=== PATIENT | female | born 1980 | race Caucasian/White ===

== ENCOUNTER → 2018-03-15 | Emergency (ER) | payer OTHER ==
[~2018-03-15] VITALS: Ht 157.5 cm; Wt 63.0 kg
[~2018-03-15] MED LIST: ARMO250T4 PO; BUPR150T8 PO; CETI-1 PO; CLON-528 PO; FAMO-1 PO; HYDR1TAB PO; IBUP-1984 PO; ONDA4TAB59 PO; ONDA8TAB9 PO; SULF5DRO EACHEYE; erythromycin ophthalmic ointment 1gm tube EACHEYE ONE
[2018-03-15 12:05] VITALS: BP 117/70
== END | disposition home or self-care (01) ==
LOC: ER 12:03
DX: H10.9 Unspecified conjunctivitis (principal); Z98.890 Other specified postprocedural states; Z88.1 Allergy status to other antibiotic agents; Z88.6 Allergy status to analgesic agent; Z88.8 Allergy status to other drugs, medicaments and biological substances
CPT/HCPCS: 99282

== ENCOUNTER 2018-06-20 13:34 | Emergency (ER) | payer OTHER ==
[~2018-06-20] VITALS: Ht 157.5 cm; Wt 59.1 kg
[~2018-06-20 13:34] MED LIST changes: -erythromycin ophthalmic ointment 1gm tube EACHEYE ONE
[2018-06-20 13:40] VITALS: BP 145/90
[2018-06-20] MEDS ORDERED: BACDS PO (14:10)
[2018-06-20] MEDS ORDERED: sulfamethoxazole/trimethoprim DS (800/160mg) tablet PO ONE (14:10)
[2018-06-20] MEDS ORDERED: gentamicin 0.3% ophthalmic drops 5ML LEFTEYE ONE (14:10)
[2018-06-21] MEDS ORDERED: HYDR-4383 PO (18:07)
[2018-06-21] MEDS ORDERED: DOXY100T2 PO (18:07)
[2018-06-21] MEDS ORDERED: ONDA4TAB6 PO (18:07)
[2018-06-21] MEDS ORDERED: HYDR-3686 PO (18:13)
[2018-06-22] MEDS ORDERED: PRED20TA PO (17:57)
[2018-06-22] MEDS ORDERED: RIFA600V4 PO (18:07)
== END 2018-06-20 14:21 | disposition home or self-care (01) ==
LOC: ER 13:34
DX: L08.9 Local infection of the skin and subcutaneous tissue, unspecified (principal); Z90.89 Acquired absence of other organs; Z98.890 Other specified postprocedural states; Z88.1 Allergy status to other antibiotic agents; Z79.899 Other long term (current) drug therapy
CPT/HCPCS: 99283

== ENCOUNTER 2018-06-21 17:18 | Emergency (ER) | payer OTHER ==
[~2018-06-21] VITALS: Ht 157.5 cm; Wt 61.3 kg
[~2018-06-21 17:18] MED LIST changes: +BACDS PO
[2018-06-21 17:59] VITALS: BP 119/85
[2018-06-21] MEDS ORDERED: ONDA4TAB6 PO (18:07)
[2018-06-21] MEDS ORDERED: DOXY100T2 PO (18:07)
[2018-06-21] MEDS ORDERED: HYDR-4383 PO (18:07)
[2018-06-21] MEDS ORDERED: HYDR-3686 PO (18:13)
[2018-06-22] MEDS ORDERED: PRED20TA PO (17:57)
[2018-06-22] MEDS ORDERED: RIFA600V4 PO (18:07)
== END 2018-06-21 18:20 | disposition home or self-care (01) ==
LOC: ER 17:18
DX: B95.8 Unspecified staphylococcus as the cause of diseases classified elsewhere (principal); Z86.14 Personal history of Methicillin resistant Staphylococcus aureus infection; Z90.89 Acquired absence of other organs; Z98.890 Other specified postprocedural states; Z88.1 Allergy status to other antibiotic agents; Z79.899 Other long term (current) drug therapy
CPT/HCPCS: 99283

== ENCOUNTER 2018-06-30 14:19 | Emergency (ER) | payer OTHER ==
[~2018-06-30] VITALS: Ht 157.5 cm; Wt 58.3 kg
[~2018-06-30 14:19] MED LIST changes: +DOXY100T2 PO; +HYDR-3686 PO; +HYDR-4383 PO; +ONDA4TAB6 PO; +RIFA600V4 PO
[2018-06-30 15:07] VITALS: BP 123/93
[2018-06-30] MEDS ORDERED: GABA-530 PO (15:34)
== END 2018-06-30 15:44 | disposition home or self-care (01) ==
LOC: ER 14:20
DX: L08.9 Local infection of the skin and subcutaneous tissue, unspecified (principal); L53.8 Other specified erythematous conditions; R60.9 Edema, unspecified; Z90.89 Acquired absence of other organs; Z79.899 Other long term (current) drug therapy; Z88.8 Allergy status to other drugs, medicaments and biological substances; Z88.1 Allergy status to other antibiotic agents; Z86.14 Personal history of Methicillin resistant Staphylococcus aureus infection
CPT/HCPCS: 87070; 99283

== ENCOUNTER 2018-07-14 08:07 | Emergency (ER) | payer OTHER ==
[~2018-07-14] VITALS: Ht 157.5 cm; Wt 61.3 kg
[~2018-07-14 08:07] MED LIST changes: +GABA-530 PO; -HYDR-3686 PO
[2018-07-14 08:08] VITALS: BP 114/87
[2018-07-14] MEDS ORDERED: triamcinolone acetonide 40mg/ml inj IM ONE (08:25)
[2018-07-14 09:20] LABS: BASOPHILS % (AUTO) 0.2 % (0-1); EOSINOPHILS % (AUTO) 0 % (0-6); HEMOGLOBIN 13.1 g/dl (12.0-16.0); LYMPHOCYTES # (AUTO) 0.7 X10'3 (1.1-4.8); LYMPHOCYTES % (AUTO) 7.6 % (21-51); MEAN CORPUSCULAR HGB CONC 34.6 % (33.0-36.5); MEAN CORPUSCULAR VOLUME 92.5 FL (78-98); MEAN PLATELET VOLUME 8.4 FL (7.4-10.4); MONOCYTES # (AUTO) 0.1 X10'3 (0-0.9); MONOCYTES % (AUTO) 1.3 % (2-12); NEUTROPHILS # (AUTO) 8.1 X10'3 (1.8-7.7); NEUTROPHILS % (AUTO) 90.9 % (42-75); PLATELET COUNT 270 X10'3 (140-440); RED BLOOD COUNT 4.11 X10'6 (4.20-5.60); RED CELL DISTRIBUTION WIDTH 13.7 % (11.5-14.5); WHITE BLOOD COUNT 8.9 X10'3 (4.5-11.0)
[2018-07-14 09:26] LABS: ALANINE AMINOTRANSFERASE 24 U/L (12-78); ALBUMIN 3.9 G/DL (3.4-5.0); ALBUMIN/GLOBULIN RATIO 1.2 (1.1-1.5); ALKALINE PHOSPHATASE 89 IU/L (46-116); ANION GAP 11 (8-16); ASPARTATE AMINO TRANSFERASE 19 U/L (10-37); BILIRUBIN,TOTAL 0.4 MG/DL (0.1-1.0); BLOOD UREA NITROGEN 11 MG/DL (7-18); BUN/CREATININE RATIO 13.8 (6.6-38.0); CALCIUM 8.9 MG/DL (8.5-10.1); CHLORIDE 103 MMOL/L (99-107); GLUCOSE 107 MG/DL (70-104); POTASSIUM 3.8 MMOL/L (3.5-5.1); SODIUM 140 MMOL/L (135-145); TOTAL CARBON DIOXIDE 25.8 MMOL/L (24-32); TOTAL PROTEIN 7.2 G/DL (6.4-8.2); eGFR 81 ML/MIN
[2018-07-14] MEDS ORDERED: HYDR25CA PO (09:42)
[2018-07-16 08:48] LABS: RPR Non Reactive (Non Reactive)
== END 2018-07-14 09:49 | disposition home or self-care (01) ==
LOC: ER 08:07
DX: R21 Rash and other nonspecific skin eruption (principal); Z88.1 Allergy status to other antibiotic agents; Z88.2 Allergy status to sulfonamides; Z88.8 Allergy status to other drugs, medicaments and biological substances
CPT/HCPCS: 36415; 80053; 85025; 86592; 96372; 99283; J3301

== ENCOUNTER 2018-07-25 08:30 | Outpatient (CLI) | payer OTHER ==
[~2018-07-25 08:30] MED LIST changes: -BACDS PO; +HYDR25CA PO
[2018-07-25 09:48] LABS: BASOPHILS % (AUTO) 0.8 % (0-1); EOSINOPHILS # (AUTO) 0.1 X10'3 (0-0.9); EOSINOPHILS % (AUTO) 1.9 % (0-6); HEMATOCRIT 37.5 % (35.0-45.0); HEMOGLOBIN 12.6 g/dl (12.0-16.0); LYMPHOCYTES # (AUTO) 1.6 X10'3 (1.1-4.8); LYMPHOCYTES % (AUTO) 29.8 % (21-51); MEAN CORPUSCULAR HEMOGLOBIN 31.3 PG (27.0-31.0); MEAN CORPUSCULAR HGB CONC 33.6 % (33.0-36.5); MEAN CORPUSCULAR VOLUME 93.3 FL (78-98); MEAN PLATELET VOLUME 7.8 FL (7.4-10.4); MONOCYTES # (AUTO) 0.5 X10'3 (0-0.9); MONOCYTES % (AUTO) 9.3 % (2-12); NEUTROPHILS % (AUTO) 58.2 % (42-75); PLATELET COUNT 258 X10'3 (140-440); RED BLOOD COUNT 4.02 X10'6 (4.20-5.60); RED CELL DISTRIBUTION WIDTH 14.8 % (11.5-14.5); WHITE BLOOD COUNT 5.2 X10'3 (4.5-11.0)
[2018-07-25 10:06] LABS: ALANINE AMINOTRANSFERASE 29 U/L (12-78); ALBUMIN 3.8 G/DL (3.4-5.0); ALBUMIN/GLOBULIN RATIO 1.3 (1.1-1.5); ALKALINE PHOSPHATASE 76 IU/L (46-116); ANION GAP 9 (8-16); ASPARTATE AMINO TRANSFERASE 21 U/L (10-37); BILIRUBIN,TOTAL 0.2 MG/DL (0.1-1.0); BLOOD UREA NITROGEN 11 MG/DL (7-18); BUN/CREATININE RATIO 14.1 (6.6-38.0); CALCIUM 8.3 MG/DL (8.5-10.1); CHLORIDE 106 MMOL/L (99-107); CHOL/HDL RATIO 2.3 (0.00-4.99); CHOLESTEROL 184 MG/DL (0-200); CREATININE 0.78 MG/DL (0.40-0.90); GLUCOSE 86 MG/DL (70-104); HDL CHOLESTEROL 80 MG/DL (35-60); LDL CHOLESTEROL 94 MG/DL (50-100); POTASSIUM 3.4 MMOL/L (3.5-5.1); SODIUM 142 MMOL/L (135-145); TOTAL CARBON DIOXIDE 26.8 MMOL/L (24-32); TOTAL PROTEIN 6.7 G/DL (6.4-8.2); TRIGLYCERIDES 49 MG/DL (20-135); eGFR 84 ML/MIN
[2018-07-25 10:36] LABS: RHEUM FACTOR QUAL REFLEX TITER NEGATIVE (Neg)
[2018-07-26 11:15] LABS: ANTINUCLEAR ANTIBODIES Negative (Negative)
== END 2018-07-25 23:59 | disposition home or self-care (01) ==
LOC: LAB 08:30
PROVIDERS: ATTEND Physician Assistant
DX: Z00.00 Encounter for general adult medical examination without abnormal findings (principal); M25.50 Pain in unspecified joint; R21 Rash and other nonspecific skin eruption; Z88.8 Allergy status to other drugs, medicaments and biological substances; Z79.899 Other long term (current) drug therapy
CPT/HCPCS: 36415; 80053; 80061; 84443; 85025; 86038; 86200; 86430

== ENCOUNTER 2018-08-01 13:34 | Outpatient (CLI) | payer OTHER ==
[2018-08-03 13:05] LABS: THIIODOTHRONINE, FREE, SERUM 2.6 pg/mL (2.0-4.4); THYROID PEROXIDASE AB 12 IU/mL (0-34)
[2018-08-06 08:15] LABS: ANTITHYROGLOBULIN AB <1.0 IU/mL (0.0-0.9)
== END 2018-08-01 23:59 | disposition home or self-care (01) ==
LOC: LAB 13:34
PROVIDERS: ATTEND Physician Assistant
DX: E05.90 Thyrotoxicosis, unspecified without thyrotoxic crisis or storm (principal); Z90.89 Acquired absence of other organs; Z88.1 Allergy status to other antibiotic agents; Z88.2 Allergy status to sulfonamides
CPT/HCPCS: 36415; 84432; 84439; 84443; 84481; 86376; 86800

== ENCOUNTER 2019-06-27 15:24 | Emergency (ER) | payer OTHER ==
[~2019-06-27] VITALS: Ht 157.5 cm; Wt 64.0 kg
[2019-06-27 16:07] VITALS: BP 115/60
== END 2019-06-27 17:18 | disposition home or self-care (01) ==
LOC: ER 15:24
DX: O99.511 Diseases of the respiratory system complicating pregnancy, first trimester (principal); J06.9 Acute upper respiratory infection, unspecified; B97.89 Other viral agents as the cause of diseases classified elsewhere; Z3A.09 9 weeks gestation of pregnancy; Z90.89 Acquired absence of other organs; Z98.890 Other specified postprocedural states; Z88.2 Allergy status to sulfonamides; Z88.1 Allergy status to other antibiotic agents; Z88.8 Allergy status to other drugs, medicaments and biological substances; Z79.899 Other long term (current) drug therapy
CPT/HCPCS: 99281

== ENCOUNTER 2019-07-04 15:21 | Outpatient (CLI) | payer OTHER | END 2019-07-04 23:59 | disposition home or self-care (01) | LOC: RAD 15:21 | PROVIDERS: ATTEND Physician Assistant | DX: O36.8390 Maternal care for abnormalities of the fetal heart rate or rhythm, unspecified trimester, not applicable or unspecified (principal) | CPT/HCPCS: 76801 ==

== ENCOUNTER 2019-07-04 15:48 | Emergency (ER) | payer OTHER ==
[~2019-07-04] VITALS: Ht 73.7 cm; Wt 64.5 kg
[2019-07-04 15:57] VITALS: BP 135/87
== END 2019-07-04 16:36 | disposition home or self-care (01) ==
LOC: ER 15:49
DX: O26.891 Other specified pregnancy related conditions, first trimester (principal); O36.8310 Maternal care for abnormalities of the fetal heart rate or rhythm, first trimester, not applicable or unspecified; Z98.890 Other specified postprocedural states; Z90.89 Acquired absence of other organs; Z88.2 Allergy status to sulfonamides; Z88.1 Allergy status to other antibiotic agents; Z88.8 Allergy status to other drugs, medicaments and biological substances; Z79.899 Other long term (current) drug therapy; Z3A.11 11 weeks gestation of pregnancy
CPT/HCPCS: 99281; 99284

== ENCOUNTER 2020-03-16 12:09 | Emergency (ER) | payer BC, OTHER ==
[~2020-03-16] VITALS: Ht 157.5 cm; Wt 59.1 kg
[2020-03-16 12:17] VITALS: BP 120/73
== END 2020-03-16 13:21 | disposition home or self-care (01) ==
LOC: ER 12:10
DX: J06.9 Acute upper respiratory infection, unspecified (principal); Z20.828 Contact with and (suspected) exposure to other viral communicable diseases; Z98.890 Other specified postprocedural states; Z88.8 Allergy status to other drugs, medicaments and biological substances; Z88.2 Allergy status to sulfonamides; Z88.1 Allergy status to other antibiotic agents; Z79.899 Other long term (current) drug therapy
CPT/HCPCS: 36415; 99282

== ENCOUNTER 2020-03-17 13:46 | Emergency (ER) | payer BC ==
[~2020-03-17] VITALS: Ht 157.5 cm; Wt 59.1 kg
[2020-03-17] MEDS: acetaminophen 325mg tablet PO STA ×2 (13:49→15:33)
[2020-03-17] MEDS ORDERED: CefTRIAXone 2gm/D5W 50ml 50 ML IV ONE (13:50)
[2020-03-17] MEDS ORDERED: normal saline 1000ML IV soln IV ONE (13:50)
[2020-03-17] MEDS ORDERED: iohexol 350MG/ML 100ml bottle IV ONE (16:13)
[2020-03-17 16:21] LABS: BASOPHILS # (AUTO) 0.1 X10'3 (0-0.2); BASOPHILS % (AUTO) 0.7 % (0-1); EOSINOPHILS # (AUTO) 0.1 X10'3 (0-0.9); EOSINOPHILS % (AUTO) 1.2 % (0-6); HEMATOCRIT 37.4 % (35.0-45.0); HEMOGLOBIN 12.5 g/dl (12.0-16.0); LYMPHOCYTES # (AUTO) 1.9 X10'3 (1.1-4.8); LYMPHOCYTES % (AUTO) 25.8 % (21-51); MEAN CORPUSCULAR HEMOGLOBIN 31.3 PG (27.0-31.0); MEAN CORPUSCULAR HGB CONC 33.3 g/dL (33.0-36.5); MEAN CORPUSCULAR VOLUME 93.9 FL (78-98); MEAN PLATELET VOLUME 7.8 FL (7.4-10.4); MONOCYTES # (AUTO) 0.6 X10'3 (0-0.9); MONOCYTES % (AUTO) 8.7 % (2-12); NEUTROPHILS # (AUTO) 4.7 X10'3 (1.8-7.7); NEUTROPHILS % (AUTO) 63.6 % (42-75); PLATELET COUNT 310 X10'3 (140-440); RED BLOOD COUNT 3.99 X10'6 (4.20-5.60); RED CELL DISTRIBUTION WIDTH 13.9 % (11.5-14.5); WHITE BLOOD COUNT 7.4 X10'3 (4.5-11.0)
[2020-03-17 16:29] LABS: ALANINE AMINOTRANSFERASE 24 U/L (12-78); ALBUMIN 3.6 G/DL (3.4-5.0); ALBUMIN/GLOBULIN RATIO 1.2 (1.1-1.5); ALKALINE PHOSPHATASE 106 IU/L (46-116); ANION GAP 5 (8-16); ASPARTATE AMINO TRANSFERASE 20 U/L (10-37); BILIRUBIN,TOTAL 0.2 MG/DL (0.1-1.0); BLOOD UREA NITROGEN 11 MG/DL (7-18); BUN/CREATININE RATIO 14.3 (6.6-38.0); CALCIUM 7.9 MG/DL (8.5-10.1); CHLORIDE 107 MMOL/L (99-107); CREATININE 0.77 MG/DL (0.40-0.90); GLUCOSE 69 MG/DL (70-104); POTASSIUM 3.4 MMOL/L (3.5-5.1); SODIUM 142 MMOL/L (135-145); TOTAL CARBON DIOXIDE 30.4 MMOL/L (24-32); TOTAL PROTEIN 6.7 G/DL (6.4-8.2); eGFR 84 ML/MIN
[2020-03-17] MEDS ORDERED: dexamethasone sod phosphate 10mg/ml inj IV STA (17:06)
[2020-03-17] MEDS ORDERED: ketorolac trometh. 30mg/ml inj. IV ONE (17:10)
[2020-03-17 18:42] VITALS: BP 115/80
== END 2020-03-17 18:46 | disposition home or self-care (01) ==
LOC: ER 13:46
DX: B34.9 Viral infection, unspecified (principal); R07.89 Other chest pain; R51 Headache; M25.562 Pain in left knee; R09.89 Other specified symptoms and signs involving the circulatory and respiratory systems; R06.02 Shortness of breath; M79.18 Myalgia, other site; Z98.890 Other specified postprocedural states; Z90.89 Acquired absence of other organs; Z88.8 Allergy status to other drugs, medicaments and biological substances; Z88.1 Allergy status to other antibiotic agents; Z88.2 Allergy status to sulfonamides; Z79.899 Other long term (current) drug therapy
CPT/HCPCS: 36415; 71045; 80053; 83605; 84145; 85025; 87040; 87502; 87503; 93005; 93971; 96365; 96375; 99285; J0696; J1100; J1885; J7030; Q9967

== ENCOUNTER 2020-03-17 23:11 | Emergency (ER) | payer BC ==
[~2020-03-17] VITALS: Ht 157.5 cm; Wt 59.1 kg
[2020-03-17 23:14] VITALS: BP 137/87
--- NOTE | 2020-03-18 00:15 | NUR ---
PT LEFT ER WITH RT STAFF THAT IS HER SISTER STATING SHE WAS GOING TO MAKE A FORMAL COMPLAINT. NOTIFIED OF PT LEAVING
== END 2020-03-18 00:52 | disposition left against medical advice (07) ==
LOC: ER 23:11
DX: R06.02 Shortness of breath (principal); R07.89 Other chest pain; Z53.21 Procedure and treatment not carried out due to patient leaving prior to being seen by health care provider

== ENCOUNTER 2020-12-13 09:52 | Emergency (ER) | payer BC, OTHER ==
[~2020-12-13] VITALS: Ht 157.5 cm; Wt 5.9 kg
[2020-12-13] MEDS ORDERED: FLUT16SP2 BOTHNARES (09:56)
[2020-12-13 09:57] VITALS: BP 115/83
[2020-12-13] MEDS ORDERED: triamcinolone acetonide 40mg/ml inj IM ONE (10:00)
== END 2020-12-13 10:07 | disposition home or self-care (01) ==
LOC: ER 09:52
DX: J45.50 Severe persistent asthma, uncomplicated (principal); J30.9 Allergic rhinitis, unspecified; R09.81 Nasal congestion; F17.200 Nicotine dependence, unspecified, uncomplicated; Z90.89 Acquired absence of other organs; Z98.890 Other specified postprocedural states; Z88.1 Allergy status to other antibiotic agents; Z88.8 Allergy status to other drugs, medicaments and biological substances; Z79.2 Long term (current) use of antibiotics; Z79.899 Other long term (current) drug therapy
CPT/HCPCS: 96372; 99283; J3301

== ENCOUNTER 2022-08-15 07:12 | Emergency (ER) | payer BC ==
[~2022-08-15] VITALS: Ht 157.5 cm; Wt 59.1 kg
[~2022-08-15 07:12] MED LIST changes: +AMPH10TA23 PO; -ARMO250T4 PO; -BUPR150T8 PO; -CETI-1 PO; -CLON-528 PO; -DOXY100T2 PO; -FAMO-1 PO; -GABA-530 PO; -HYDR-4383 PO; -HYDR1TAB PO; -HYDR25CA PO; -IBUP-1984 PO; +METF-900 PO; -ONDA4TAB59 PO; -ONDA4TAB6 PO; -ONDA8TAB9 PO; +PANT-47 PO; -RIFA600V4 PO; -SULF5DRO EACHEYE
[2022-08-15 07:14] VITALS: BP 127/92
[2022-08-15] MEDS ORDERED: fluorescein sod 1mg ophthalmic strip EACHEYE ONE (08:15)
[2022-08-15] MEDS ORDERED: TETRACAINE 0.5% 4 ML OPHTHALMIC DROPS EACHEYE ONE (08:15)
--- NOTE | 2022-08-15 08:22 | NUR ---
Eye drops administered by provider.
[2022-08-15] MEDS ORDERED: erythromycin ophthalmic ointment 1gm tube EACHEYE ONE (08:40)
[2022-08-15] MEDS ORDERED: ERYT1OIN6 EACHEYE (08:44)
--- NOTE | 2022-08-15 08:55 | NUR ---
Eye ointment given to patient by provider.
== END 2022-08-15 08:57 | disposition home or self-care (01) ==
LOC: ER 07:12
DX: H10.89 Other conjunctivitis (principal); Z87.19 Personal history of other diseases of the digestive system; Z88.2 Allergy status to sulfonamides; Z88.8 Allergy status to other drugs, medicaments and biological substances; Z88.1 Allergy status to other antibiotic agents; Z79.899 Other long term (current) drug therapy; Z79.1 Long term (current) use of non-steroidal anti-inflammatories (NSAID)
CPT/HCPCS: 99284; J3490

== ENCOUNTER 2022-09-05 07:52 | Outpatient (CLI) | payer BC ==
[2022-09-05 08:23] LABS: EOSINOPHILS # (AUTO) 0.1 X10'3 (0-0.9); EOSINOPHILS % (AUTO) 1.5 % (0-6); HEMOGLOBIN 12.4 g/dl (12.0-16.0); LYMPHOCYTES # (AUTO) 1.4 X10'3 (1.1-4.8); LYMPHOCYTES % (AUTO) 31.1 % (21-51); MEAN CORPUSCULAR HEMOGLOBIN 30.9 PG (27.0-31.0); MEAN CORPUSCULAR HGB CONC 33.6 g/dL (33.0-36.5); MEAN CORPUSCULAR VOLUME 91.9 FL (78-98); MEAN PLATELET VOLUME 7.2 FL (7.4-10.4); MONOCYTES # (AUTO) 0.4 X10'3 (0-0.9); MONOCYTES % (AUTO) 9.8 % (2-12); NEUTROPHILS # (AUTO) 2.5 X10'3 (1.8-7.7); NEUTROPHILS % (AUTO) 56.6 % (42-75); PLATELET COUNT 284 X10'3 (140-440); RED BLOOD COUNT 4.03 X10'6 (4.20-5.60); RED CELL DISTRIBUTION WIDTH 13.7 % (11.5-14.5); WHITE BLOOD COUNT 4.5 X10'3 (4.5-11.0)
[2022-09-05 08:41] LABS: ALANINE AMINOTRANSFERASE 21 U/L (12-78); ALBUMIN 3.9 G/DL (3.4-5.0); ALBUMIN/GLOBULIN RATIO 1.3 (1.1-1.5); ALKALINE PHOSPHATASE 77 IU/L (46-116); ANION GAP 7 (8-16); ASPARTATE AMINO TRANSFERASE 30 U/L (10-37); BILIRUBIN,TOTAL 0.4 MG/DL (0.1-1.0); BLOOD UREA NITROGEN 12 MG/DL (7-18); BUN/CREATININE RATIO 14.6 (6.6-38.0); CALCIUM 8.6 MG/DL (8.5-10.1); CHLORIDE 105 MMOL/L (99-107); CREATININE 0.82 MG/DL (0.40-0.90); GLUCOSE 94 MG/DL (70-104); POTASSIUM 3.8 MMOL/L (3.5-5.1); SODIUM 140 MMOL/L (135-145); TOTAL CARBON DIOXIDE 28.5 MMOL/L (24-32); eGFR 77 ML/MIN
[2022-09-05 08:50] LABS: CHOL/HDL RATIO 2.5 (0.00-4.99); CHOLESTEROL 225 MG/DL (0-200); HDL CHOLESTEROL 91 MG/DL (35-60); LDL CHOLESTEROL 121 MG/DL (50-100); TRIGLYCERIDES 45 MG/DL (20-135)
== END 2022-09-05 23:59 | disposition home or self-care (01) ==
LOC: LAB 07:52
PROVIDERS: ATTEND Physician Assistant
DX: Z00.00 Encounter for general adult medical examination without abnormal findings (principal); F90.9 Attention-deficit hyperactivity disorder, unspecified type; Z79.899 Other long term (current) drug therapy
CPT/HCPCS: 36415; 80053; 80061; 82306; 84439; 84443; 85025

== ENCOUNTER 2022-11-03 07:48 | Outpatient (CLI) | payer BC ==
[2022-11-03 08:22] LABS: BASOPHILS % (AUTO) 0.8 % (0-1); EOSINOPHILS # (AUTO) 0.1 X10'3 (0-0.9); EOSINOPHILS % (AUTO) 1.4 % (0-6); HEMATOCRIT 37.9 % (35.0-45.0); HEMOGLOBIN 12.7 g/dl (12.0-16.0); LYMPHOCYTES # (AUTO) 1.4 X10'3 (1.1-4.8); LYMPHOCYTES % (AUTO) 33.9 % (21-51); MEAN CORPUSCULAR HEMOGLOBIN 30.8 PG (27.0-31.0); MEAN CORPUSCULAR HGB CONC 33.6 g/dL (33.0-36.5); MEAN CORPUSCULAR VOLUME 91.6 FL (78-98); MEAN PLATELET VOLUME 7.5 FL (7.4-10.4); MONOCYTES # (AUTO) 0.5 X10'3 (0-0.9); MONOCYTES % (AUTO) 12.2 % (2-12); NEUTROPHILS # (AUTO) 2.1 X10'3 (1.8-7.7); NEUTROPHILS % (AUTO) 51.7 % (42-75); PLATELET COUNT 297 X10'3 (140-440); RED BLOOD COUNT 4.13 X10'6 (4.20-5.60); RED CELL DISTRIBUTION WIDTH 13.2 % (11.5-14.5)
[2022-11-03 08:50] LABS: ALANINE AMINOTRANSFERASE 22 U/L (12-78); ALBUMIN 4.1 G/DL (3.4-5.0); ALBUMIN/GLOBULIN RATIO 1.4 (1.1-1.5); ALKALINE PHOSPHATASE 68 IU/L (46-116); ANION GAP 9 (8-16); ASPARTATE AMINO TRANSFERASE 28 U/L (10-37); BILIRUBIN,TOTAL 0.3 MG/DL (0.1-1.0); BLOOD UREA NITROGEN 14 MG/DL (7-18); BUN/CREATININE RATIO 15.7 (10.0-20.0); CALCIUM 9.2 MG/DL (8.5-10.1); CHLORIDE 102 MMOL/L (99-107); CREATININE 0.89 MG/DL (0.40-0.90); GLUCOSE 80 MG/DL (70-104); POTASSIUM 3.8 MMOL/L (3.5-5.1); SODIUM 139 MMOL/L (135-145); TOTAL CARBON DIOXIDE 28.1 MMOL/L (24-32); eGFR 70 ML/MIN
[2022-11-03 09:53] LABS: RHEUM FACTOR QUAL REFLEX TITER NEGATIVE (Neg)
[2022-11-04 16:04] LABS: ANTINUCLEAR ANTIBODIES Negative (Negative); THIIODOTHRONINE, FREE, SERUM 2.7 pg/mL (2.0-4.4); THYROID PEROXIDASE AB <9 IU/mL (0-34); THYROXINE (T4) 7.6 ug/dL (4.5-12.0); TRIIODOTHYRONINE (T3) 89 ng/dL (71-180)
== END 2022-11-03 23:59 | disposition home or self-care (01) ==
LOC: LAB 07:48
PROVIDERS: ATTEND Physician Assistant Medical
DX: R53.82 Chronic fatigue, unspecified (principal)
CPT/HCPCS: 36415; 80053; 82306; 84436; 84439; 84443; 84480; 84481; 85025; 86038; 86376; 86430

== ENCOUNTER 2023-01-31 14:59 | Outpatient (CLI) | payer BC ==
[2023-02-02 15:27] LABS: ANTINUCLEAR ANTIBODIES Negative (Negative)
== END 2023-01-31 23:59 | disposition home or self-care (01) ==
LOC: LAB 14:59
PROVIDERS: ATTEND Physician Assistant Medical
DX: R76.0 Raised antibody titer (principal)
CPT/HCPCS: 36415; 86038; 86592

== ENCOUNTER 2023-04-11 07:51 | Day surgery (SDC) | payer BC ==
[2023-04-05 14:53] LABS: BASOPHILS # (AUTO) 0.1 X10'3 (0-0.2); BASOPHILS % (AUTO) 0.7 % (0-1); EOSINOPHILS # (AUTO) 0.1 X10'3 (0-0.9); EOSINOPHILS % (AUTO) 0.8 % (0-6); LYMPHOCYTES # (AUTO) 1.7 X10'3 (1.1-4.8); LYMPHOCYTES % (AUTO) 23.7 % (21-51); MEAN CORPUSCULAR HEMOGLOBIN 30.2 PG (27.0-31.0); MEAN CORPUSCULAR VOLUME 91.5 FL (78-98); MEAN PLATELET VOLUME 7.5 FL (7.4-10.4); MONOCYTES # (AUTO) 0.6 X10'3 (0-0.9); NEUTROPHILS # (AUTO) 4.8 X10'3 (1.8-7.7); NEUTROPHILS % (AUTO) 66.8 % (42-75); PRE OP HEMATOCRIT 37.8 % (35.0-45.0); PRE OP HEMOGLOBIN 12.5 g/dL (12.0-16.0); PRE OP PLATELET COUNT 300 X10'3 (140-440); PRE OP WHITE BLOOD COUNT 7.2 10'3 (4.8-10.8); RED BLOOD COUNT 4.12 X10'6 (4.20-5.60); RED CELL DISTRIBUTION WIDTH 13.9 % (11.5-14.5)
[2023-04-05 15:25] LABS: ALBUMIN/GLOBULIN RATIO 1.3 (1.1-1.5); ALKALINE PHOSPHATASE 77 IU/L (46-116); BLOOD UREA NITROGEN 19 MG/DL (7-18); BUN/CREATININE RATIO 22.4 (10.0-20.0); CALCIUM 8.9 MG/DL (8.5-10.1); CHLORIDE 103 MMOL/L (99-107); CREATININE 0.85 MG/DL (0.40-0.90); PRE OP ALT 27 U/L (30-65); PRE OP ANION GAP 5 (8-16); PRE OP AST 29 U/L (10-37); PRE OP BILIRUB, TOTAL 0.2 MG/DL (0.0-1.0); PRE OP GLUCOSE 84 MG/DL (70-104); PRE OP POTASSIUM 3.6 MMOL/L (3.4-5.1); PRE OP SODIUM 139 MMOL/L (135-145); TOTAL CARBON DIOXIDE 31.3 MMOL/L (24-32); eGFR 74 ML/MIN
[2023-04-05 15:34] LABS: HCG SERUM QL NEGATIVE
[2023-04-11] VITALS (8 sets, daily range): BP systolic 103–117; BP diastolic 45–76; PULSE 77–86; RESP 9–16; TEMP 98.3; O2SAT 95–100
[~2023-04-11] VITALS: Ht 157.5 cm; Wt 57.0 kg
[~2023-04-11 07:51] MED LIST changes: +HYDR100T41 PO; +MULT-1130 PO; +MULT-955 PO; +VALA500T41 PO; +ceFOXitin 2GM-NS 100mL ADDvant 100 ML IV ONE; +famotidine 20mg tablet PO ONE; +ringers solution, lacted 1,000 ML IV SCH
[2023-04-11 08:47] LABS: URINE HCG NEGATIVE (NEG)
[2023-04-11] MEDS ORDERED: ondansetron/PF 4mg/2ml inj IV PRN (09:25)
[2023-04-11] MEDS ORDERED: ringers solution, lacted 1,000 ML IV SCH (09:25)
[2023-04-11] MEDS ORDERED: proCHLORperazine 10 MG/2 ml inj IV PRN (09:25)
[2023-04-11] MEDS ORDERED: morphine 2 MG/ML inj. syringe IV PRN (09:25)
[2023-04-11] MEDS ORDERED: meperidine/PF 25mg/ml syringe IV PRN ×3 (09:25)
[2023-04-11] MEDS ORDERED: morphine 4 MG/ML inj SYRINge IV PRN (09:25)
[2023-04-11] MEDS ORDERED: midazolam 1 mg/ML 2ml injection ONE (09:48)
[2023-04-11] MEDS ORDERED: fentaNYL/PF 50MCG/1 ML 2ML syringe ONE (09:48)
[2023-04-11] MEDS ORDERED: LIDOcaine 2% (20mg/ml) 5ml vial ONE (09:49)
[2023-04-11] MEDS ORDERED: propofol inj 20 ML IV ONE (09:49)
[2023-04-11] MEDS ORDERED: BUPIVAcaine HCl 0.25%/EPInephrine 1:200,000 inj. 10 ML VIAL ONE (10:14)
[2023-04-11] MEDS ORDERED: sevoflurane 250ml liquid IH ONE (10:17)
[2023-04-11] MEDS ORDERED: ketorolac trometh. 30mg/ml inj. ONE (10:47)
[2023-04-11] MEDS ORDERED: dexamethasone sod phosphate 4mg/ml inj. ONE (10:47)
[2023-04-11] MEDS ORDERED: ondansetron/PF 4mg/2ml inj ONE (10:47)
--- NOTE | 2023-04-11 10:58 | NUR ---
Received from OR via [facility], accompanied by Anesthesiologist and report given by Anesthesiologist. PATIENT WAKING UP, NO S/S OF PAIN, V/S WNL, SCD ON , PIV 20G RIGHT HAND, PERIPAD DRESSING C/D/I. Addendum: 04/11/23 at 1111 by Jesse Jernigan RN Amended: Links added.
--- NOTE | 2023-04-11 11:48 | NUR ---
ALL DISCHARGE CRITERIA HAS BEEN MET. VSS, PAIN AT A TOLERABLE LEVEL, ABLE TO SAFELY AMBULATE AND TRANSFER SELF. IV TAKEN OUT WITHOUT ANY COMPLICATIONS. ALL DISCHARGE INSTRUCTIONS COVERED WITH PATIENT AND ALL QUESTIONS ANSWERED. PATIENT TAKEN OUT VIA WHEELCHAIR WITH ALL BELONGINGS TO PERSONAL VEHICLE WHERE FRIEND DROVE PATIENT HOME. Addendum: 04/11/23 at 1151 by Jesse Jernigan RN Amended: Links added.
== END 2023-04-11 11:48 | disposition home or self-care (01) ==
LOC: PAS 07:51
PROVIDERS: ATTEND Specialist
DX: N92.0 Excessive and frequent menstruation with regular cycle (principal); K21.9 Gastro-esophageal reflux disease without esophagitis; F98.8 Other specified behavioral and emotional disorders with onset usually occurring in childhood and adolescence; Z88.8 Allergy status to other drugs, medicaments and biological substances; Z88.2 Allergy status to sulfonamides; Z79.899 Other long term (current) drug therapy; Z98.890 Other specified postprocedural states; Z98.51 Tubal ligation status
CPT/HCPCS: 36415; 58563; 80053; 81025; 82948; 84703; 85025; J0694; J1100; J1885; J2175; J2250; J2405; J2704; J3010; J3490; J7120; Z7506; Z7512; A4355; A4618; A4649; A7000

== ENCOUNTER → 2023-12-10 | Outpatient (CLI) | payer BC ==
[~2023-12-10] MED LIST changes: -ceFOXitin 2GM-NS 100mL ADDvant 100 ML IV ONE; -famotidine 20mg tablet PO ONE; -ringers solution, lacted 1,000 ML IV SCH
[2023-12-10 07:52] LABS: BASOPHILS % (AUTO) 0.9 % (0-1); EOSINOPHILS % (AUTO) 0.7 % (0-6); HEMATOCRIT 37.7 % (35.0-45.0); HEMOGLOBIN 12.5 g/dl (12.0-16.0); LYMPHOCYTES # (AUTO) 1.4 X10'3 (1.1-4.8); LYMPHOCYTES % (AUTO) 28.8 % (21-51); MEAN CORPUSCULAR HEMOGLOBIN 30.5 PG (27.0-31.0); MEAN CORPUSCULAR HGB CONC 33.1 g/dL (33.0-36.5); MEAN CORPUSCULAR VOLUME 92.2 FL (78-98); MEAN PLATELET VOLUME 7.3 FL (7.4-10.4); MONOCYTES # (AUTO) 0.5 X10'3 (0-0.9); NEUTROPHILS # (AUTO) 2.9 X10'3 (1.8-7.7); NEUTROPHILS % (AUTO) 59.6 % (42-75); PLATELET COUNT 299 X10'3 (140-440); RED BLOOD COUNT 4.09 X10'6 (4.20-5.60); RED CELL DISTRIBUTION WIDTH 13.2 % (11.5-14.5); WHITE BLOOD COUNT 4.8 X10'3 (4.5-11.0)
[2023-12-10 08:26] LABS: ANION GAP 9 (8-16); BLOOD UREA NITROGEN 12 MG/DL (7-18); BUN/CREATININE RATIO 13.2 (10.0-20.0); CHLORIDE 103 MMOL/L (99-107); CREATININE 0.91 MG/DL (0.40-0.90); GLUCOSE 94 MG/DL (70-104); POTASSIUM 3.4 MMOL/L (3.5-5.1); SODIUM 139 MMOL/L (135-145); TOTAL CARBON DIOXIDE 27.3 MMOL/L (24-32)
[2023-12-10 08:27] LABS: ALANINE AMINOTRANSFERASE 30 U/L (12-78); ALBUMIN 3.9 G/DL (3.4-5.0); ALBUMIN/GLOBULIN RATIO 1.2 (1.1-1.5); ALKALINE PHOSPHATASE 74 IU/L (46-116); ASPARTATE AMINO TRANSFERASE 23 U/L (10-37); BILIRUBIN,TOTAL 0.3 MG/DL (0.1-1.0); CALCIUM 8.5 MG/DL (8.5-10.1); FERRITIN 12 NG/ML (8-252); TOTAL PROTEIN 7.1 G/DL (6.4-8.2); eGFR 68 ML/MIN
[2023-12-10 08:47] LABS: RHEUM FACTOR QUAL REFLEX TITER NEGATIVE (Neg)
[2023-12-11 11:46] LABS: ANTINUCLEAR ANTIBODIES Negative (Negative)
[2023-12-11 18:23] LABS: VITAMIN D, 1,25 DIHYDROXY 69.6 pg/mL (24.8-81.5)
== END | disposition home or self-care (01) ==
LOC: LAB 07:28
PROVIDERS: ATTEND Physician Assistant Medical
DX: R53.81 Other malaise (principal); M32.9 Systemic lupus erythematosus, unspecified; D89.9 Disorder involving the immune mechanism, unspecified; Z79.899 Other long term (current) drug therapy
CPT/HCPCS: 36415; 80053; 82652; 82728; 85025; 86038; 86140; 86430

== ENCOUNTER 2024-05-16 08:00 | Outpatient (CLI) | payer BC ==
[2024-05-16 08:27] LABS: HEMATOCRIT 38.5 % (35.0-45.0); LYMPHOCYTES # (AUTO) 1.5 X10'3 (1.1-4.8); LYMPHOCYTES % (AUTO) 31.4 % (21-51); MEAN CORPUSCULAR HEMOGLOBIN 31.5 PG (27.0-31.0); MEAN CORPUSCULAR HGB CONC 33.8 g/dL (33.0-36.5); MEAN CORPUSCULAR VOLUME 93.4 FL (78-98); MEAN PLATELET VOLUME 7.5 FL (7.4-10.4); MONOCYTES # (AUTO) 0.5 X10'3 (0-0.9); MONOCYTES % (AUTO) 10.6 % (2-12); NEUTROPHILS # (AUTO) 2.6 X10'3 (1.8-7.7); PLATELET COUNT 265 X10'3 (140-440); RED BLOOD COUNT 4.12 X10'6 (4.20-5.60); RED CELL DISTRIBUTION WIDTH 13.5 % (11.5-14.5); WHITE BLOOD COUNT 4.7 X10'3 (4.5-11.0)
[2024-05-16 09:14] LABS: ALANINE AMINOTRANSFERASE 24 U/L (12-78); ALBUMIN 3.8 G/DL (3.4-5.0); ALBUMIN/GLOBULIN RATIO 1.3 (1.1-1.5); ALKALINE PHOSPHATASE 71 IU/L (46-116); ANION GAP 7 (8-16); ASPARTATE AMINO TRANSFERASE 23 U/L (10-37); BILIRUBIN,DIRECT 0.1 MG/DL (0-0.3); BILIRUBIN,TOTAL 0.3 MG/DL (0.1-1.0); BLOOD UREA NITROGEN 17 MG/DL (7-18); CALCIUM 8.3 MG/DL (8.5-10.1); CHLORIDE 104 MMOL/L (99-107); GLUCOSE 93 MG/DL (70-104); POTASSIUM 3.8 MMOL/L (3.5-5.1); SODIUM 139 MMOL/L (135-145); THYROID STIMULATING HORMONE 1.16 ulU/ml (0.34-4.50); TOTAL CARBON DIOXIDE 28.2 MMOL/L (24-32); TOTAL PROTEIN 6.7 G/DL (6.4-8.2); eGFR 61 ML/MIN
[2024-05-17 11:11] LABS: FSH, SERUM 2.9 mIU/mL (.); PROLACTIN 8.3 ng/mL (4.8-33.4); TESTOSTERONE, SERUM <3 ng/dL (4-50)
== END 2024-05-16 23:59 | disposition home or self-care (01) ==
LOC: RAD 08:00
PROVIDERS: ATTEND Specialist
DX: R61 Generalized hyperhidrosis (principal)
CPT/HCPCS: 36415; 80048; 80076; 83001; 84146; 84402; 84403; 84443; 85025

== ENCOUNTER 2024-06-17 07:45 | Emergency (ER) | payer BC ==
[~2024-06-17] VITALS: Ht 157.5 cm; Wt 53.6 kg
[2024-06-17 07:48] VITALS: BP 116/79; PULSE 86; RESP 18; TEMP 97.6; O2SAT 100
[2024-06-17] MEDS: ketorolac trometh 30MG/ML vial 30 MG/ML VIAL IM ONE (08:02)
== END 2024-06-17 08:53 | disposition home or self-care (01) ==
LOC: ER 07:45
DX: M62.838 Other muscle spasm (principal); Z88.2 Allergy status to sulfonamides; Z88.1 Allergy status to other antibiotic agents; Z90.89 Acquired absence of other organs; Z98.890 Other specified postprocedural states
CPT/HCPCS: 96372; 99283; J1885

== ENCOUNTER 2024-08-25 08:58 | Emergency (ER) | payer BC ==
[~2024-08-25] VITALS: Ht 157.5 cm; Wt 54.1 kg
[~2024-08-25 08:58] MED LIST changes: -AMPH10TA23 PO; +DEXT20CA4 PO; -MULT-1130 PO; +VITAMIN D PO; +[UNRECOGNIZED DRUG - OTHER] PO; +allertec PO
[2024-08-25 09:02] VITALS: BP 125/82; PULSE 87; RESP 18; TEMP 97.7; O2SAT 100
[2024-08-25] MEDS: ketorolac trometh 15mg/ml vial 15 MG/ML ML IM ONE (09:42)
== END 2024-08-25 09:30 | disposition home or self-care (01) ==
LOC: ER 08:59
DX: R51.9 Headache, unspecified (principal); M54.2 Cervicalgia; Z88.2 Allergy status to sulfonamides; Z88.1 Allergy status to other antibiotic agents; Z90.89 Acquired absence of other organs; Z98.890 Other specified postprocedural states
CPT/HCPCS: 96372; 99283; J1885

== ENCOUNTER 2024-09-01 09:12 | Day surgery (SDC) | payer BC ==
[2024-08-21 14:03] LABS: BASOPHILS % (AUTO) 0.6 % (0-1); EOSINOPHILS # (AUTO) 0.1 X10'3 (0-0.9); EOSINOPHILS % (AUTO) 1.1 % (0-6); LYMPHOCYTES % (AUTO) 28.8 % (21-51); MEAN CORPUSCULAR HEMOGLOBIN 31.1 PG (27.0-31.0); MEAN CORPUSCULAR HGB CONC 33.1 g/dL (33.0-36.5); MEAN CORPUSCULAR VOLUME 93.7 FL (78-98); MEAN PLATELET VOLUME 7.1 FL (7.4-10.4); MONOCYTES # (AUTO) 0.6 X10'3 (0-0.9); MONOCYTES % (AUTO) 8.1 % (2-12); NEUTROPHILS # (AUTO) 4.4 X10'3 (1.8-7.7); NEUTROPHILS % (AUTO) 61.4 % (42-75); PRE OP HEMATOCRIT 38.6 % (35.0-45.0); PRE OP HEMOGLOBIN 12.8 g/dL (12.0-16.0); PRE OP PLATELET COUNT 310 X10'3 (140-440); PRE OP WHITE BLOOD COUNT 7.1 10'3 (4.8-10.8); RED BLOOD COUNT 4.12 X10'6 (4.20-5.60); RED CELL DISTRIBUTION WIDTH 13.3 % (11.5-14.5)
[2024-08-21 14:57] LABS: ALBUMIN 3.9 G/DL (3.4-5.0); ALBUMIN/GLOBULIN RATIO 1.3 (1.1-1.5); ALKALINE PHOSPHATASE 79 IU/L (46-116); BLOOD UREA NITROGEN 18 MG/DL (7-18); BUN/CREATININE RATIO 25.7 (10.0-20.0); CALCIUM 8.6 MG/DL (8.5-10.1); CHLORIDE 106 MMOL/L (99-107); PRE OP ALT 25 U/L (30-65); PRE OP ANION GAP 6 (8-16); PRE OP AST 22 U/L (10-37); PRE OP BILIRUB, TOTAL 0.2 MG/DL (0.0-1.0); PRE OP GLUCOSE 90 MG/DL (70-104); PRE OP SODIUM 142 MMOL/L (135-145); TOTAL CARBON DIOXIDE 29.9 MMOL/L (24-32); TOTAL PROTEIN 6.9 G/DL (6.4-8.2); eGFR > 90 ML/MIN
[2024-09-01] VITALS (12 sets, daily range): BP systolic 105–123; BP diastolic 53–81; PULSE 70–110; RESP 13–16; TEMP 98.2; O2SAT 100
[~2024-09-01] VITALS: Ht 157.5 cm; Wt 55.1 kg
[2024-09-01] MEDS: famotidine 20mg tablet PO ONE (09:44)
[2024-09-01] MEDS: ringers solution, lacted 1,000 ML IV SCH (09:44)
[2024-09-01] MEDS: dextrose 5%-water 1,000 ML IV ONE (10:30)
[2024-09-01] MEDS ORDERED: ondansetron/PF 4mg/2ml inj IV ONE (11:55)
[2024-09-01] MEDS ORDERED: ondansetron/PF 4mg/2ml inj ONE ×2 (11:56→14:48)
[2024-09-01] MEDS ORDERED: LIDOcaine 1% W/epiNEPHrine 1:100,000 20ml vial ONE (12:44)
[2024-09-01] MEDS ORDERED: methylene blue (5mg/ml) 50mg/10ml ampul IV ONE (12:44)
[2024-09-01] MEDS ORDERED: BUPIVAcaine 2.5mg/ml inj 50ml vial (contains preservative) ONE (12:44)
[2024-09-01] MEDS ORDERED: midazolam 1 mg/ML 2ml injection ONE (13:42)
[2024-09-01] MEDS ORDERED: fentaNYL/PF 50MCG/1 ML 2ML syringe ONE (13:42)
[2024-09-01] MEDS ORDERED: propofol inj 20 ML IV ONE (13:42)
[2024-09-01] MEDS ORDERED: rocuronium 10mg/ml inj IV ONE (13:43)
[2024-09-01] MEDS ORDERED: sevoflurane 250ml liquid IH ONE (13:48)
[2024-09-01] MEDS ORDERED: acetaminophen 1,000mg/100ml IV 100 ML IV PRN (13:50)
[2024-09-01] MEDS ORDERED: morphine 2 MG/ML inj. syringe IV PRN (13:50)
[2024-09-01] MEDS ORDERED: ondansetron/PF 4mg/2ml inj IV PRN (13:50)
[2024-09-01] MEDS ORDERED: morphine 4 MG/ML inj SYRINge IV PRN (13:50)
[2024-09-01] MEDS ORDERED: ringers solution, lacted 1,000 ML IV SCH (13:50)
[2024-09-01] MEDS ORDERED: labetalol 20mg/4ml (5mg/ml) syringe IV PRN (13:50)
[2024-09-01] MEDS ORDERED: HYDROmorphone/PF 0.2 MG/ML SYRINGE IV PRN (13:50)
[2024-09-01] MEDS ORDERED: dexamethasone sod phosphate 4mg/ml inj. ONE (14:48)
[2024-09-01] MEDS ORDERED: sugammadex 200mg/2ml injection IV ONE (14:50)
[2024-09-01] MEDS: HYDROmorphone/PF 0.2 MG/ML SYRINGE IV PRN (16:14)
[2024-09-01] MEDS: ketorolac trometh 30MG/ML vial 30 MG/ML VIAL IV ONE (16:14)
== END 2024-09-01 16:55 | disposition home or self-care (01) ==
LOC: PAS 09:12
PROVIDERS: ATTEND Colon & Rectal Surgery
DX: K64.4 Residual hemorrhoidal skin tags (principal); K64.8 Other hemorrhoids; F90.9 Attention-deficit hyperactivity disorder, unspecified type; K21.9 Gastro-esophageal reflux disease without esophagitis; Z88.2 Allergy status to sulfonamides; Z88.8 Allergy status to other drugs, medicaments and biological substances; Z86.14 Personal history of Methicillin resistant Staphylococcus aureus infection; Z79.899 Other long term (current) drug therapy; Z98.890 Other specified postprocedural states; Z98.51 Tubal ligation status
CPT/HCPCS: 36415; 46255; 80053; 82948; 85025; A6223; J1100; J1171; J1885; J2250; J2405; J2704; J3010; J3490; J7030; J7070; J7120; Q9968; Z7506; Z7508; Z7512; A4215; A4402; A4618; A6449; A7000